=== PATIENT | female | born 1965 | race Two or more races ===

== ENCOUNTER → 2016-05-19 | Outpatient (CLI) | payer OTHER ==
--- NOTE | ~2016-05-19 | MY7 ---
[facility] A Service of [facility] & [facility] RADIOLOGY TEXT RESULTS PATIENT: GEORGIE SAN LOCATION: [facility] : 67 UNIT #: [id number] AGE: [address]: KATIA YANG APRN SEX: F ORDER DR: [id number] [facility] [address] [place], [place] [address] [id number] O MR#: [id number] Acc #: [id number] NAME: GEORGIE SAN : 1965 SEX: F STUDY DATE/TIME: 05/19/2016 12:29 UNIT: [facility] ROOM: STUDY DESCRIPTION: MY Mammogram Dx Dig Lt Attending Physician: Bharat Yang M.D. Referring Physician: Bharat Yang M.D. Ordering Physician: Bharat Yang M.D. Primary Care Physician: Filemon Tobin M.D. MEDICAL IMAGING REPORT This report is preliminary unless electronic signature is present EXAM Left digital diagnostic mammogram. DATE OF EXAM 05/19/2016 COMPARISON Screening mammograms dated May 03, 2016, and May 01, 2015. INDICATION 51-year-old female with a left breast asymmetry only seen on CC view of screening mammography. Additional imaging evaluations are recommended. FINDINGS There are scattered fibroglandular densities. Spot compression CC as well as full-field rolled medial and rolled lateral CC views were obtained. ML view was also obtained. The finding nearly completely effaces on spot compression view, and now the mammographic appearance is stable going back to 2015 in this location. This is consistent with summation artifact of normal fibroglandular tissues. There are no suspicious findings in the left breast. IMPRESSION No mammographic evidence of malignancy in the left breast. Finding of initial concern is consistent with summation artifact. Findings were discussed with the patient upon termination of today's exam. The patient was also instructed to report any complaints to her primary care physician. Otherwise, she is instructed that continued annual screening mammography is recommended. Patients over the age of 40 are entered into a reminder system with target due date for the next mammogram. A result letter will also be sent to the patient. STS. [facility] A Service of [facility] & [facility] RADIOLOGY TEXT RESULTS PATIENT: GEORGIE SAN LOCATION: [facility] #: [id number] : 67 UNIT #: [id number] AGE: [address]: KATIA YANG APRN SEX: F ORDER DR: BIRADS: 2 Benign findings. Dictated by... Nate Batista M.D. THIS IS AN ELECTRONICALLY VERIFIED REPORT Nate Batista M.D. at 05/21/2016 6:58 PM ABILIO/marbin TD: 05/19/2016 16:14 JOB #: [id number] MEDICAL IMAGING REPORT COPY
== END | disposition home or self-care (01) ==
LOC: CMAM 11:51
DX: R92.2 Inconclusive mammogram (principal)
CPT/HCPCS: G0206

== ENCOUNTER 2016-10-31 10:51 | Emergency (ER) | payer OTHER ==
[~2016-10-31] VITALS: Ht 162.6 cm; Wt 108.9 kg
== END 2016-10-31 12:16 | disposition home or self-care (01) ==
LOC: CED 10:51 → CFTX 10:51
DX: M79.7 Fibromyalgia (principal); M62.830 Muscle spasm of back; E16.2 Hypoglycemia, unspecified; Z88.0 Allergy status to penicillin
CPT/HCPCS: 82947; 99283; J1885